=== PATIENT | male | born 1950 | race African-American/Black ===

== ENCOUNTER 2019-07-19 21:20 | Emergency (ER) | payer OTHER ==
[~2019-07-19] VITALS: Ht 172.7 cm; Wt 127.0 kg
[2019-07-19 22:05] LABS: Basophils # (auto) 0.1 uL; Basophils % (auto) 1.3 % (0.0-2.0); Eosinophils # (auto) 0.2 uL; Eosinophils % (auto) 2.2 % (0.0-7.0); Hemoglobin 12.6 g/dL (13.5-17.5); Lymphocytes # (auto) 1.2 uL; Lymphocytes % (auto) 17.5 % (10.0-50.0); Mean Corpuscular Hemoglobin 27.4 pg (28.0-32.0); Mean Corpuscular Hgb Conc. 32.3 g/dL (32.0-36.0); Mean Corpuscular Volume 84.9 fL (80.0-100.0); Monocytes # (auto) 0.4 uL; Monocytes % (auto) 6.4 % (0.0-12.0); Neutrophils # (auto) 4.9 uL; Neutrophils % (auto) 72.6 % (37.0-80.0); Platelet Count (auto) 333 10^3/uL (140-450); Red Cell Distribution Width 15.6 % (11.8-14.3); White Blood Cell 6.8 10^3/uL (4.4-10.8)
[2019-07-19 22:23] LABS: Alanine Aminotransferase 15 U/L (16-61); Albumin 3.7 g/dL (3.4-5.0); Anion Gap 7 (5-15); Aspartate Aminotransferase 9 U/L (15-37); BUN/Creatinine Ratio 13.5; Blood Urea Nitrogen 19 mg/dL (7-18); Carbon Dioxide 28 mmol/L (21-32); Chloride 106 mmol/L (98-107); GFR African American 64 mL/min; GFR Non-African American 53 mL/min; Glucose 180 mg/dL (74-106); Potassium 4.3 mmol/L (3.5-5.1); Sodium 141 mmol/L (136-145)
[2019-07-19 22:28] LABS: Alkaline Phosphatase 97 U/L (45-117); Bilirubin, Total 0.3 mg/dL (0.2-1.0); Total Protein 8.5 g/dL (6.4-8.2)
[2019-07-20 01:07] VITALS: BP 110/65
== END 2019-07-20 01:50 | disposition home or self-care (01) ==
LOC: ER 21:24
DX: R60.9 Edema, unspecified (principal); E11.9 Type 2 diabetes mellitus without complications; E78.5 Hyperlipidemia, unspecified; I10 Essential (primary) hypertension
CPT/HCPCS: 36415; 71045; 80053; 83880; 84484; 85025; 93005

== ENCOUNTER 2019-10-30 20:49 | Emergency (ER) | payer OTHER, MEDICAID ==
[~2019-10-30] VITALS: Ht 172.7 cm; Wt 122.0 kg
[2019-10-30 22:30] VITALS: BP 148/79
== END 2019-10-30 22:52 | disposition home or self-care (01) ==
LOC: ER 20:50
DX: I67.9 Cerebrovascular disease, unspecified (principal); L03.811 Cellulitis of head [any part, except face]; E11.9 Type 2 diabetes mellitus without complications; E78.5 Hyperlipidemia, unspecified; I10 Essential (primary) hypertension
CPT/HCPCS: 70450; 82962

== ENCOUNTER 2020-08-30 17:51 | Emergency (ER) | payer OTHER, MEDICAID ==
[~2020-08-30] VITALS: Ht 172.7 cm; Wt 127.0 kg
[2020-08-30 17:58] VITALS: BP 135/72
[2020-08-30] MEDS ORDERED: ACETAMINOPHEN 500 MG TAB PO ONE (19:15)
== END 2020-08-30 19:49 | disposition home or self-care (01) ==
LOC: ER 17:51 → EDBD 17:51 → ER 19:49
DX: S46.911A Strain of unspecified muscle, fascia and tendon at shoulder and upper arm level, right arm, initial encounter (principal); E66.8 Other obesity; Z68.41 Body mass index [BMI] 40.0-44.9, adult; W18.39XA Other fall on same level, initial encounter; Y93.89 Activity, other specified; Y92.89 Other specified places as the place of occurrence of the external cause; Y99.8 Other external cause status
CPT/HCPCS: 73030

== ENCOUNTER 2021-10-03 13:23 | Emergency (ER) | payer OTHER, MEDICAID ==
[~2021-10-03] VITALS: Ht 172.7 cm; Wt 124.7 kg
[2021-10-03 14:20] LABS: Basophils # (auto) 0.1 10 ^3/uL (0-0.2); Basophils % (auto) 1.2 % (0.0-2.0); Eosinophils # (auto) 0.1 10 ^3/uL (0-0.8); Hemoglobin 12.1 g/dL (13.5-17.5); Lymphocytes # (auto) 0.5 10 ^3/uL (0.4-5.4); Lymphocytes % (auto) 12.1 % (10.0-50.0); Mean Corpuscular Hemoglobin 28.5 pg (28.0-32.0); Mean Corpuscular Hgb Conc. 32.6 g/dL (32.0-36.0); Mean Corpuscular Volume 87.4 fL (80.0-100.0); Monocytes # (auto) 0.3 10 ^3/uL (0-1.3); Monocytes % (auto) 7.1 % (0.0-12.0); Neutrophils # (auto) 3.4 10 ^3/uL (1.6-8.6); Neutrophils % (auto) 77.6 % (37.0-80.0); Nucleated Red Blood Cells % 0.2 %; Red Blood Cells 4.24 10^6/uL (4.5-5.90); Red Cell Distribution Width 17.8 % (11.8-14.3); White Blood Cell 4.4 10^3/uL (4.4-10.8)
[2021-10-03 14:37] LABS: Albumin 3.3 g/dL (3.4-5.0); Calcium 8.9 mg/dL (8.5-10.1); Potassium 4.6 mmol/L (3.5-5.1)
[2021-10-03 14:39] LABS: BUN/Creatinine Ratio 9.3
[2021-10-03 14:44] LABS: Bilirubin, Total 0.7 mg/dL (0.2-1.0); Total Protein 6.8 g/dL (6.4-8.2)
[2021-10-03] MEDS ORDERED: AZIT250T9 PO (17:19)
[2021-10-03] MEDS ORDERED: PRED20TA2 PO (17:19)
[2021-10-03] MEDS ORDERED: ALBUAER3 IN (17:20)
[2021-10-03 17:22] VITALS: BP 111/49
== END 2021-10-03 17:35 | disposition home or self-care (01) ==
LOC: EDBD 13:23 → ER 13:23
DX: J20.9 Acute bronchitis, unspecified (principal); I13.0 Hypertensive heart and chronic kidney disease with heart failure and stage 1 through stage 4 chronic kidney disease, or unspecified chronic kidney disease; E11.22 Type 2 diabetes mellitus with diabetic chronic kidney disease; N18.9 Chronic kidney disease, unspecified; I50.9 Heart failure, unspecified; E78.5 Hyperlipidemia, unspecified; Z20.822 Contact with and (suspected) exposure to COVID-19
CPT/HCPCS: 36415; 71045; 80053; 83880; 84484; 85025; 87426; 93005

== ENCOUNTER 2022-01-06 10:35 | Emergency (ER) | payer OTHER, MEDICAID ==
[~2022-01-06] VITALS: Ht 172.7 cm; Wt 124.7 kg
[~2022-01-06 10:35] MED LIST: ALBUAER3 IN; AZIT250T9 PO; PRED20TA2 PO
[2022-01-06 13:46] LABS: Basophils # (auto) 0.1 10 ^3/uL (0-0.2); Basophils % (auto) 1.2 % (0.0-2.0); Eosinophils # (auto) 0.1 10 ^3/uL (0-0.8); Eosinophils % (auto) 1.8 % (0.0-7.0); Hematocrit 38.4 % (41.0-53.0); Hemoglobin 12.3 g/dL (13.5-17.5); Lymphocytes # (auto) 0.7 10 ^3/uL (0.4-5.4); Mean Corpuscular Hemoglobin 27.9 pg (28.0-32.0); Mean Corpuscular Hgb Conc. 32.1 g/dL (32.0-36.0); Mean Corpuscular Volume 86.9 fL (80.0-100.0); Monocytes # (auto) 0.4 10 ^3/uL (0-1.3); Monocytes % (auto) 4.9 % (0.0-12.0); Neutrophils # (auto) 6.3 10 ^3/uL (1.6-8.6); Neutrophils % (auto) 83.1 % (37.0-80.0); Red Blood Cells 4.42 10^6/uL (4.5-5.90); Red Cell Distribution Width 16.5 % (11.8-14.3); White Blood Cell 7.5 10^3/uL (4.4-10.8)
[2022-01-06 13:51] LABS: Albumin 3.7 g/dL (3.4-5.0); BUN/Creatinine Ratio 15.1; Calcium 8.5 mg/dL (8.5-10.1); Potassium 3.9 mmol/L (3.5-5.1)
[2022-01-06 13:53] LABS: Bilirubin, Total 0.6 mg/dL (0.2-1.0); Total Protein 7.6 g/dL (6.4-8.2)
[2022-01-06 13:55] LABS: Lactic Acid w/Reflex 2.2 mmol/L (0.4-2.0)
[2022-01-06] MEDS ORDERED: TRAM-297 PO (14:13)
[2022-01-06] MEDS ORDERED: CLIN150C PO (14:14)
[2022-01-06 15:46] VITALS: BP 128/74
== END 2022-01-06 15:48 | disposition home or self-care (01) ==
LOC: ER 10:35
DX: L03.313 Cellulitis of chest wall (principal); E11.22 Type 2 diabetes mellitus with diabetic chronic kidney disease; I13.0 Hypertensive heart and chronic kidney disease with heart failure and stage 1 through stage 4 chronic kidney disease, or unspecified chronic kidney disease; N18.9 Chronic kidney disease, unspecified; I50.9 Heart failure, unspecified; E78.5 Hyperlipidemia, unspecified
CPT/HCPCS: 36415; 80053; 83605; 85025

== ENCOUNTER 2022-07-27 19:45 | Inpatient (IN) | payer OTHER ==
[~2022-07-27] VITALS: Ht 172.7 cm; Wt 125.5 kg
[~2022-07-27 19:45] MED LIST changes: +CLIN150C PO; +TRAM-297 PO
[2022-07-27] MEDS ORDERED: ASPirin 81 mg TAB PO ONE (20:00)
[2022-07-27] MEDS ORDERED: MORPHINE SULFATE 4 MG/ML SYR/VIAL IV ONE (20:00)
[2022-07-27] MEDS ORDERED: FUROSEMIDE 40 MG/4 ML VIAL IV ONE (20:00)
[2022-07-27] MEDS ORDERED: ONDANSETRON HCL 4 MG/2 ML VIAL IV ONE (20:00)
[2022-07-27 20:41] LABS: Basophils # (auto) 0 10 ^3/uL (0-0.2); Basophils % (auto) 0.7 % (0.0-2.0); Eosinophils # (auto) 0.1 10 ^3/uL (0-0.8); Hematocrit 36.3 % (41.0-53.0); Hemoglobin 11.6 g/dL (13.5-17.5); Lymphocytes # (auto) 0.7 10 ^3/uL (0.4-5.4); Lymphocytes % (auto) 9.7 % (10.0-50.0); Mean Corpuscular Hemoglobin 27.1 pg (28.0-32.0); Mean Corpuscular Hgb Conc. 32.1 g/dL (32.0-36.0); Mean Corpuscular Volume 84.4 fL (80.0-100.0); Monocytes # (auto) 0.4 10 ^3/uL (0-1.3); Monocytes % (auto) 6.2 % (0.0-12.0); Neutrophils # (auto) 5.5 10 ^3/uL (1.6-8.6); Neutrophils % (auto) 81.4 % (37.0-80.0); Nucleated Red Blood Cells % 0.1 %; Red Cell Distribution Width 17.2 % (11.8-14.3); White Blood Cell 6.7 10^3/uL (4.4-10.8)
[2022-07-27 20:58] LABS: INR 1.08 (0.9-1.15); Partial Thromboplastin Time 26.3 sec (24.6-33.4)
[2022-07-27 21:16] LABS: Albumin 3.6 g/dL (3.4-5.0); BUN/Creatinine Ratio 12.2; Magnesium 2.3 mg/dL (1.6-2.6); Potassium 4.7 mmol/L (3.5-5.1)
[2022-07-27 21:19] LABS: Bilirubin, Total 0.6 mg/dL (0.2-1.0); Total Protein 6.9 g/dL (6.4-8.2)
[2022-07-27 22:43] LABS: Urine Bacteria NONE SEEN /hpf (None Seen); Urine Blood Negative /uL (Negative); Urine Specific Gravity 1.004 (1.001-1.035); Urine WBC <1 /hpf (0 - 3)
[2022-07-28] MEDS ORDERED: LORazepam 0.5 MG TAB PO PRN (01:30)
[2022-07-28] MEDS ORDERED: DEXTROSE (50%) 50ML SYRG IV PRN (01:30)
[2022-07-28] MEDS ORDERED: NITROGLYCERIN 0.4 MG SL TAB SL PRN (01:30)
[2022-07-28] MEDS ORDERED: MAALOX PLUS or MAALOX 30 ML PO ONE (01:30)
[2022-07-28] MEDS ORDERED: ONDANSETRON HCL 4 MG/2 ML VIAL IV PRN (01:30)
[2022-07-28] MEDS ORDERED: MORPHINE SULFATE 4 MG/ML SYR/VIAL IV PRN (01:30)
[2022-07-28] MEDS: InsuLIN REG 1unit/0.01ml Soln (100units/ml) SC SCH ×5 (03:53→20:44)
[2022-07-28] MEDS: ACCU-CHEK COMFORT CURVE STRIP VI SCH ×5 (03:53→20:37)
[2022-07-28 06:08] LABS: Basophils # (auto) 0 10 ^3/uL (0-0.2); Eosinophils # (auto) 0.1 10 ^3/uL (0-0.8); Monocytes # (auto) 0.5 10 ^3/uL (0-1.3); Nucleated Red Blood Cells % 0.1 %; Red Blood Cells 4.21 10^6/uL (4.5-5.90)
[2022-07-28 06:12] LABS: Basophils % (auto) 0.8 % (0.0-2.0); Eosinophils % (auto) 2.3 % (0.0-7.0); Hematocrit 35.4 % (41.0-53.0); Hemoglobin 11.4 g/dL (13.5-17.5); Lymphocytes % (auto) 15.1 % (10.0-50.0); Mean Corpuscular Hemoglobin 27.1 pg (28.0-32.0); Mean Corpuscular Hgb Conc. 32.3 g/dL (32.0-36.0); Mean Corpuscular Volume 83.9 fL (80.0-100.0); Monocytes % (auto) 7.1 % (0.0-12.0); Neutrophils # (auto) 4.8 10 ^3/uL (1.6-8.6); Neutrophils % (auto) 74.7 % (37.0-80.0); Red Cell Distribution Width 17.2 % (11.8-14.3); White Blood Cell 6.5 10^3/uL (4.4-10.8)
[2022-07-28 06:26] LABS: BUN/Creatinine Ratio 14.4; Potassium 4.2 mmol/L (3.5-5.1)
[2022-07-28] MEDS: ACETAMINOPHEN 325 MG TAB PO PRN (08:19)
[2022-07-28] MEDS ORDERED: ALBUTEROL SULF 2.5 MG/0.5ML(0.5%) NEB SOLN NEB PRN (09:15)
[2022-07-28] MEDS ORDERED: LACTULOSE 20Gm/30ML SOLN PO PRN (09:15)
[2022-07-28] MEDS ORDERED: ENOXAPARIN SOD 120 MG/0.8 ML SYRINGE SC SCH (10:00)
[2022-07-28] MEDS: DOCUSATE SOD 100 MG CAP PO SCH (10:29)
[2022-07-28] MEDS: LISINOPRIL 10 MG TAB PO SCH (10:29)
[2022-07-28] MEDS: METOPROLOL TARTRATE 25 MG TAB PO SCH ×2 (10:29→22:51)
[2022-07-28] MEDS: CLOPIDOGREL BISULFATE 75 MG TAB PO SCH (10:29)
[2022-07-28] MEDS: ASPirin 81 mg TAB PO SCH (10:29)
[2022-07-28] MEDS: ENOXAPARIN SOD 40 MG/0.4 ML SYRINGE SC SCH (10:30)
[2022-07-28] MEDS: FUROSEMIDE 20 MG/2 ML VIAL IV SCH (10:30)
[2022-07-28] MEDS: AZITHROMYCIN 500MG/ 250ML 250 ML IV SCH (10:45)
[2022-07-28 11:45] VITALS: BP 115/71
[2022-07-28] MEDS: ATORVASTATIN 20 MG TAB PO SCH (22:51)
[2022-07-29] MEDS: ACCU-CHEK COMFORT CURVE STRIP VI SCH ×7 (00:12→23:47)
[2022-07-29] MEDS: FUROSEMIDE 20 MG/2 ML VIAL IV SCH ×3 (00:13→22:25)
[2022-07-29] MEDS: ZOLPIDEM TARTRATE 5 MG TAB PO PRN ×2 (00:39→22:32)
[2022-07-29] MEDS: InsuLIN REG 1unit/0.01ml Soln (100units/ml) SC SCH ×6 (04:00→23:25)
[2022-07-29 07:09] LABS: Cholesterol 129 mg/dL (< 200)
[2022-07-29 07:12] LABS: HDL Cholesterol 54 mg/dL (40-59); LDL Cholesterol 75 mg/dL (< 100); Triglycerides 74 mg/dL (< 150)
[2022-07-29] MEDS: cefTRIAXone 1GM/50ML D5W 50 ML IV SCH (09:32)
[2022-07-29] MEDS: ASPirin 81 mg TAB PO SCH (10:41)
[2022-07-29] MEDS: DOCUSATE SOD 100 MG CAP PO SCH (10:41)
[2022-07-29] MEDS: METOPROLOL TARTRATE 25 MG TAB PO SCH ×2 (10:44→22:25)
[2022-07-29] MEDS: ENOXAPARIN SOD 40 MG/0.4 ML SYRINGE SC SCH (10:45)
[2022-07-29] MEDS: CLOPIDOGREL BISULFATE 75 MG TAB PO SCH (10:45)
[2022-07-29] MEDS: LISINOPRIL 10 MG TAB PO SCH (10:45)
[2022-07-29] MEDS: AZITHROMYCIN 500MG/ 250ML 250 ML IV SCH (11:01)
[2022-07-29 15:24] VITALS: BP 122/54
[2022-07-29] MEDS ORDERED: METO-159 PO (15:29)
[2022-07-29] MEDS ORDERED: FUR20T PO (15:29)
[2022-07-29] MEDS ORDERED: DULA0.5I SC (15:29)
[2022-07-29] MEDS ORDERED: INSU1INJ5 SC (15:29)
[2022-07-29] MEDS ORDERED: FERR1TAB8 PO (15:29)
[2022-07-29] MEDS ORDERED: METF-372 PO (15:29)
[2022-07-29 17:30] VITALS: BP 125/55
[2022-07-29 20:00] VITALS: BP 120/60
[2022-07-29 21:05] VITALS: BP 120/60
[2022-07-29 22:13] VITALS: BP 120/60
[2022-07-29] MEDS: ATORVASTATIN 20 MG TAB PO SCH (22:25)
[2022-07-30] MEDS: InsuLIN REG 1unit/0.01ml Soln (100units/ml) SC SCH ×5 (04:00→20:20)
[2022-07-30] MEDS: ACCU-CHEK COMFORT CURVE STRIP VI SCH ×5 (04:30→20:20)
[2022-07-30 05:00] VITALS: BP 97/45
[2022-07-30] MEDS ORDERED: REGADENOSON 0.4 MG/5 ML SYRG IV ONE (07:45)
[2022-07-30 09:00] VITALS: BP 136/64
[2022-07-30] MEDS: AZITHROMYCIN 500MG/ 250ML 250 ML IV SCH (12:00)
[2022-07-30] MEDS: cefTRIAXone 1GM/50ML D5W 50 ML IV SCH (12:01)
[2022-07-30] MEDS: ASPirin 81 mg TAB PO SCH (12:02)
[2022-07-30] MEDS: FUROSEMIDE 20 MG/2 ML VIAL IV SCH (12:02)
[2022-07-30] MEDS: ENOXAPARIN SOD 40 MG/0.4 ML SYRINGE SC SCH (12:02)
[2022-07-30] MEDS: LISINOPRIL 10 MG TAB PO SCH (12:03)
[2022-07-30] MEDS: CLOPIDOGREL BISULFATE 75 MG TAB PO SCH (12:03)
[2022-07-30] MEDS: DOCUSATE SOD 100 MG CAP PO SCH (12:03)
[2022-07-30] MEDS: METOPROLOL TARTRATE 25 MG TAB PO SCH ×2 (12:03→22:32)
[2022-07-30] MEDS: ACETAMINOPHEN 325 MG TAB PO PRN (13:00)
[2022-07-30 17:00] VITALS: BP 98/72
[2022-07-30 20:00] VITALS: BP 124/55
[2022-07-30 21:59] VITALS: BP 124/55
[2022-07-30] MEDS: ATORVASTATIN 20 MG TAB PO SCH (22:32)
[2022-07-31] MEDS: ACCU-CHEK COMFORT CURVE STRIP VI SCH ×4 (00:40→12:00)
[2022-07-31] MEDS: InsuLIN REG 1unit/0.01ml Soln (100units/ml) SC SCH ×4 (04:59→12:00)
[2022-07-31 05:00] VITALS: BP 133/54
[2022-07-31] MEDS ORDERED: FUROSEMIDE 20 MG TAB PO SCH (06:00)
[2022-07-31 07:40] VITALS: BP 110/62
[2022-07-31] MEDS: DOCUSATE SOD 100 MG CAP PO SCH (08:15)
[2022-07-31] MEDS: CLOPIDOGREL BISULFATE 75 MG TAB PO SCH (08:15)
[2022-07-31] MEDS: ASPirin 81 mg TAB PO SCH (08:15)
[2022-07-31] MEDS: METOPROLOL TARTRATE 25 MG TAB PO SCH (08:16)
[2022-07-31] MEDS: ENOXAPARIN SOD 40 MG/0.4 ML SYRINGE SC SCH (08:16)
[2022-07-31] MEDS: LISINOPRIL 10 MG TAB PO SCH (08:21)
[2022-07-31 09:00] VITALS: BP 134/74
[2022-07-31] MEDS: cefTRIAXone 1GM/50ML D5W 50 ML IV SCH (09:00)
[2022-07-31] MEDS: AZITHROMYCIN 500MG/ 250ML 250 ML IV SCH (10:00)
[2022-07-31] MEDS ORDERED: DOXY-332 PO (10:09)
[2022-07-31 12:19] VITALS: BP 133/74
[2022-07-31 13:00] VITALS: BP 106/63
== END 2022-07-31 13:00 | disposition home or self-care (01) | DRG 193 ==
LOC: EDBD 19:45 → EDUNIT# 19:45 → ER 19:49 → TELE 07-28 01:30 → TELE-E-ADS 07-29 13:33 → TELE-EAST 07-29 20:45
PROVIDERS: ADMIT Hospitalist; ATTEND Nurse Practitioner Acute Care
DX: J15.9 Unspecified bacterial pneumonia (principal); I50.23 Acute on chronic systolic (congestive) heart failure; J96.21 Acute and chronic respiratory failure with hypoxia; N17.9 Acute kidney failure, unspecified; I13.0 Hypertensive heart and chronic kidney disease with heart failure and stage 1 through stage 4 chronic kidney disease, or unspecified chronic kidney disease; Z68.41 Body mass index [BMI] 40.0-44.9, adult; D64.9 Anemia, unspecified; E11.22 Type 2 diabetes mellitus with diabetic chronic kidney disease; N18.2 Chronic kidney disease, stage 2 (mild); E11.42 Type 2 diabetes mellitus with diabetic polyneuropathy; I48.91 Unspecified atrial fibrillation; E66.01 Morbid (severe) obesity due to excess calories; E78.5 Hyperlipidemia, unspecified; Z79.4 Long term (current) use of insulin; Z82.49 Family history of ischemic heart disease and other diseases of the circulatory system
CPT/HCPCS: 36415; 71045; 71046; 73610; 78452; 80048; 80053; 80061; 81001; 82962; 83735; 83880; 84484; 85025; 85610; 85730; 87040; 87426; 87804; 93005; 93017; 93306; 96374; 96375; G0378; J0696; J1815; J2405

== ENCOUNTER 2023-03-12 13:55 | Emergency (ER) | payer OTHER, MEDICAID ==
[~2023-03-12] VITALS: Ht 172.7 cm; Wt 122.7 kg
[~2023-03-12 13:55] MED LIST changes: +AZIT-43 PO; -AZIT250T9 PO; +DOXY-448 PO; +DULA0.5I SC; +FERR1TAB8 PO; +FUR20T PO; +INSU1INJ5 SC; +METF-372 PO; +METO-159 PO
[2023-03-12 14:39] LABS: Basophils # (auto) 0 10 ^3/uL (0-0.2); Basophils % (auto) 0.5 % (0.0-2.0); Eosinophils # (auto) 0.1 10 ^3/uL (0-0.8); Eosinophils % (auto) 1.4 % (0.0-7.0); Hematocrit 43.3 % (41.0-53.0); Lymphocytes # (auto) 0.7 10 ^3/uL (0.4-5.4); Lymphocytes % (auto) 7.7 % (10.0-50.0); Mean Corpuscular Hemoglobin 28.7 pg (28.0-32.0); Mean Corpuscular Hgb Conc. 32.4 g/dL (32.0-36.0); Mean Corpuscular Volume 88.8 fL (80.0-100.0); Monocytes # (auto) 0.4 10 ^3/uL (0-1.3); Monocytes % (auto) 4.8 % (0.0-12.0); Neutrophils # (auto) 7.5 10 ^3/uL (1.6-8.6); Neutrophils % (auto) 85.6 % (37.0-80.0); Red Blood Cells 4.88 10^6/uL (4.5-5.90); Red Cell Distribution Width 15.9 % (11.8-14.3); White Blood Cell 8.8 10^3/uL (4.4-10.8)
[2023-03-12 15:02] LABS: Albumin 3.4 g/dL (3.4-5.0); Calcium 8.7 mg/dL (8.5-10.1); Potassium 4.8 mmol/L (3.5-5.1)
[2023-03-12 15:09] LABS: BUN/Creatinine Ratio 10.7 (10.0-20.0); Bilirubin, Total 0.5 mg/dL (0.2-1.0)
[2023-03-12 15:59] LABS: Urine Bacteria NONE SEEN /hpf (None Seen); Urine Blood Negative /uL (Negative); Urine Clarity Clear (Clear); Urine Color Colorless (Yellow); Urine Hyaline Cast FEW /lpf (0 - 2); Urine Protein, UAD TRACE (Negative); Urine Specific Gravity 1.006 (1.001-1.035); Urine Urobilinogen Normal (Negative); Urine WBC 3 /hpf (0 - 3)
[2023-03-12 20:13] VITALS: BP 127/59; PULSE 63; RESP 16; TEMP 97.7; O2SAT 98
== END 2023-03-12 20:15 | disposition home or self-care (01) ==
LOC: ER 13:55 → EDBD 13:55 → ER 20:15
DX: R07.89 Other chest pain (principal); I48.91 Unspecified atrial fibrillation; I13.0 Hypertensive heart and chronic kidney disease with heart failure and stage 1 through stage 4 chronic kidney disease, or unspecified chronic kidney disease; E11.22 Type 2 diabetes mellitus with diabetic chronic kidney disease; N18.9 Chronic kidney disease, unspecified; I50.9 Heart failure, unspecified; E78.5 Hyperlipidemia, unspecified; F17.210 Nicotine dependence, cigarettes, uncomplicated; Z79.2 Long term (current) use of antibiotics; Z79.4 Long term (current) use of insulin; Z79.899 Other long term (current) drug therapy
CPT/HCPCS: 36415; 71045; 74176; 80053; 81001; 83690; 83880; 84484; 85025; 93005

== ENCOUNTER 2023-03-22 05:08 | Inpatient (IN) | payer OTHER, MEDICAID ==
[~2023-03-22] VITALS: Ht 172.7 cm; Wt 138.4 kg
[2023-03-22] MEDS ORDERED: HYDROcodone-ACET 5/325MG TAB PO ONE (05:30)
[2023-03-22] MEDS ORDERED: FUROSEMIDE 40 MG/4 ML VIAL IV ONE (07:00)
[2023-03-22 07:45] VITALS: PULSE 60; RESP 18; O2SAT 96
[2023-03-22 08:33] LABS: Basophils # (auto) 0.1 10 ^3/uL (0-0.2); Basophils % (auto) 0.5 % (0.0-2.0); Eosinophils # (auto) 0.1 10 ^3/uL (0-0.8); Eosinophils % (auto) 1.4 % (0.0-7.0); Hematocrit 44.8 % (41.0-53.0); Hemoglobin 14.8 g/dL (13.5-17.5); Lymphocytes # (auto) 0.7 10 ^3/uL (0.4-5.4); Lymphocytes % (auto) 6.7 % (10.0-50.0); Mean Corpuscular Hemoglobin 29.3 pg (28.0-32.0); Mean Corpuscular Hgb Conc. 32.9 g/dL (32.0-36.0); Monocytes # (auto) 0.5 10 ^3/uL (0-1.3); Monocytes % (auto) 5.4 % (0.0-12.0); Neutrophils # (auto) 8.6 10 ^3/uL (1.6-8.6); Red Blood Cells 5.04 10^6/uL (4.5-5.90)
[2023-03-22 08:48] LABS: Alanine Aminotransferase 14 U/L (7-40); Albumin 4.2 g/dL (3.2-4.8); Alkaline Phosphatase 111 U/L (46-116); Anion Gap 3.6 (5-15); Aspartate Aminotransferase < 8 U/L (13-40); BUN/Creatinine Ratio 11.9 (10.0-20.0); Bilirubin, Total 0.4 mg/dL (0.2-1.0); Blood Urea Nitrogen 18 mg/dL (9-23); Calcium 9.4 mg/dL (8.5-10.1); Carbon Dioxide 31.4 mmol/L (20-30); Chloride 104 mmol/L (98-107); Glucose 262 mg/dL (74-106); Potassium 3.9 mmol/L (3.5-5.1); Sodium 139 mmol/L (136-145)
[2023-03-22 08:49] LABS: Total Protein 7.5 g/dL (5.7-8.2)
[2023-03-22 09:36] LABS: Urine Bacteria NONE SEEN /hpf (None Seen); Urine Blood Negative /uL (Negative); Urine Clarity Clear (Clear); Urine Color Colorless (Yellow); Urine Protein, UAD Negative (Negative); Urine Specific Gravity 1.005 (1.001-1.035); Urine Urobilinogen Normal (Negative); Urine WBC <1 /hpf (0 - 3)
[2023-03-22] MEDS ORDERED: NITROGLYCERIN 0.4 MG SL TAB SL PRN (09:45)
[2023-03-22] MEDS ORDERED: ALBUTEROL SULF 2.5 MG/0.5ML(0.5%) NEB SOLN NEB PRN (09:45)
[2023-03-22] MEDS ORDERED: MORPHINE SULFATE INJ 2 MG/ml SYRG IV PRN (09:45)
[2023-03-22] MEDS ORDERED: ACETAMINOPHEN 325 MG TAB PO PRN (09:45)
[2023-03-22 10:01] LABS: LDL Cholesterol 82 mg/dL (< 100); Triglycerides 95 mg/dL (< 150)
[2023-03-22 10:03] LABS: Cholesterol 136 mg/dL (< 200); HDL Cholesterol 46 mg/dL (40-59)
[2023-03-22] MEDS: FUROSEMIDE 20 MG/2 ML VIAL IV SCH (10:21)
[2023-03-22] MEDS: ENOXAPARIN SOD 40 MG/0.4 ML SYRINGE SC SCH (10:21)
[2023-03-22] MEDS ORDERED: ASPirin 325 MG TAB PO ONE (10:30)
[2023-03-22] MEDS ORDERED: DEXTROSE (50%) 50ML SYRG IV PRN (11:00)
[2023-03-22 11:18] LABS: INR 1.03 (0.9-1.15); Prothrombin Time 10.8 sec (9.3-11.8)
[2023-03-22] MEDS: ACCU-CHEK COMFORT CURVE STRIP VI SCH ×3 (11:30→23:51)
[2023-03-22] MEDS: InsuLIN REG 1unit/0.01ml Soln (100units/ml) SC SCH ×2 (12:02→17:00)
[2023-03-22 12:58] VITALS: PULSE 85; RESP 12; O2SAT 95
[2023-03-22] MEDS: HYDROcodone-ACET 5/325MG TAB PO PRN ×2 (13:32→23:50)
[2023-03-22] MEDS ORDERED: methylPREDNISolone SOD SUCC 40 MG/ML VL IV ONE (14:30)
[2023-03-22 16:12] LABS: Sodium Urine 87 mmol/L (40-220)
[2023-03-22 16:17] LABS: Protein, Urine < 6.0 mg/dL (0.0-11.9)
[2023-03-22 16:20] LABS: Creatinine, Urine 61.82 mg/dL (30.0-125.0)
[2023-03-22 20:10] VITALS: PULSE 91; RESP 14; O2SAT 93
[2023-03-22 21:11] VITALS: BP 145/79; PULSE 91; RESP 18; TEMP 98.3; O2SAT 97
[2023-03-22 22:51] VITALS: BP 152/83; PULSE 91; PULSE 93; RESP 19; TEMP 98.2; O2SAT 91
[2023-03-22 23:33] VITALS: PULSE 88
[2023-03-22] MEDS: METOPROLOL TARTRATE 50 MG TAB PO SCH (23:51)
[2023-03-23] VITALS (11 sets, daily range): BP systolic 105–144; BP diastolic 45–60; PULSE 54–87; RESP 17–20; TEMP 36.5; O2SAT 93–98
[2023-03-23] MEDS: InsuLIN REG 1unit/0.01ml Soln (100units/ml) SC SCH ×5 (00:39→22:00)
[2023-03-23 05:46] LABS: Basophils # (auto) 0 10 ^3/uL (0-0.2); Basophils % (auto) 0.2 % (0.0-2.0); Eosinophils # (auto) 0 10 ^3/uL (0-0.8); Hemoglobin 14.4 g/dL (13.5-17.5); Lymphocytes # (auto) 0.5 10 ^3/uL (0.4-5.4); Lymphocytes % (auto) 4.5 % (10.0-50.0); Mean Corpuscular Hemoglobin 29.3 pg (28.0-32.0); Mean Corpuscular Hgb Conc. 32.7 g/dL (32.0-36.0); Mean Corpuscular Volume 89.6 fL (80.0-100.0); Monocytes # (auto) 0.4 10 ^3/uL (0-1.3); Monocytes % (auto) 3.4 % (0.0-12.0); Neutrophils # (auto) 9.9 10 ^3/uL (1.6-8.6); Neutrophils % (auto) 91.9 % (37.0-80.0); Red Blood Cells 4.91 10^6/uL (4.5-5.90); Red Cell Distribution Width 15.6 % (11.8-14.3); White Blood Cell 10.8 10^3/uL (4.4-10.8)
[2023-03-23 05:58] LABS: Albumin 4.1 g/dL (3.2-4.8); Alkaline Phosphatase 94 U/L (46-116); Anion Gap 3.4 (5-15); Aspartate Aminotransferase < 8 U/L (13-40); BUN/Creatinine Ratio 11.5 (10.0-20.0); Blood Urea Nitrogen 17 mg/dL (9-23); Calcium 9.3 mg/dL (8.5-10.1); Carbon Dioxide 29.6 mmol/L (20-30); Chloride 105 mmol/L (98-107); Glucose 216 mg/dL (74-106); Potassium 4.5 mmol/L (3.5-5.1); Sodium 138 mmol/L (136-145)
[2023-03-23 05:59] LABS: Bilirubin, Total 0.7 mg/dL (0.2-1.0); Phosphorus 2.8 mg/dL (2.4-5.1); Total Protein 7.3 g/dL (5.7-8.2)
[2023-03-23 06:08] LABS: Alanine Aminotransferase < 9 U/L (7-40)
[2023-03-23] MEDS: ACCU-CHEK COMFORT CURVE STRIP VI SCH ×4 (06:10→22:00)
[2023-03-23] MEDS: HYDROcodone-ACET 5/325MG TAB PO PRN (06:49)
[2023-03-23] MEDS: FUROSEMIDE 20 MG/2 ML VIAL IV SCH (11:17)
[2023-03-23] MEDS: METOPROLOL TARTRATE 50 MG TAB PO SCH ×2 (11:18→22:00)
[2023-03-23] MEDS: FERROUS SULFATE 325mg EC TAB PO SCH (11:19)
[2023-03-23] MEDS: ASPirin 81 mg TAB PO SCH (11:19)
[2023-03-23] MEDS: ENOXAPARIN SOD 40 MG/0.4 ML SYRINGE SC SCH (11:21)
[2023-03-24] VITALS (10 sets, daily range): BP systolic 119–137; BP diastolic 53–80; PULSE 54–61; RESP 18; TEMP 97.6–98.4; O2SAT 96–98
[2023-03-24] MEDS: HYDROcodone-ACET 5/325MG TAB PO PRN ×3 (02:05→22:03)
[2023-03-24 06:17] LABS: Basophils # (auto) 0.1 10 ^3/uL (0-0.2); Basophils % (auto) 0.6 % (0.0-2.0); Eosinophils # (auto) 0.2 10 ^3/uL (0-0.8); Eosinophils % (auto) 2.3 % (0.0-7.0); Hematocrit 40.8 % (41.0-53.0); Hemoglobin 13.3 g/dL (13.5-17.5); Lymphocytes # (auto) 1.3 10 ^3/uL (0.4-5.4); Lymphocytes % (auto) 15.1 % (10.0-50.0); Mean Corpuscular Hemoglobin 28.9 pg (28.0-32.0); Mean Corpuscular Hgb Conc. 32.7 g/dL (32.0-36.0); Mean Corpuscular Volume 88.5 fL (80.0-100.0); Monocytes # (auto) 0.6 10 ^3/uL (0-1.3); Monocytes % (auto) 7.2 % (0.0-12.0); Neutrophils # (auto) 6.5 10 ^3/uL (1.6-8.6); Neutrophils % (auto) 74.8 % (37.0-80.0); Red Blood Cells 4.61 10^6/uL (4.5-5.90); Red Cell Distribution Width 15.7 % (11.8-14.3); White Blood Cell 8.7 10^3/uL (4.4-10.8)
[2023-03-24 06:21] LABS: Chloride 103 mmol/L (98-107); Potassium 3.9 mmol/L (3.5-5.1); Sodium 137 mmol/L (136-145)
[2023-03-24 06:22] LABS: Anion Gap 3.3 (5-15); Carbon Dioxide 30.7 mmol/L (20-30)
[2023-03-24 06:23] LABS: Calcium 8.8 mg/dL (8.7-10.4)
[2023-03-24 06:27] LABS: Glucose 122 mg/dL (74-106)
[2023-03-24] MEDS: InsuLIN REG 1unit/0.01ml Soln (100units/ml) SC SCH ×4 (06:50→22:00)
[2023-03-24] MEDS: ACCU-CHEK COMFORT CURVE STRIP VI SCH ×4 (06:50→21:58)
[2023-03-24 07:53] LABS: BUN/Creatinine Ratio 14.2 (10.0-20.0); Blood Urea Nitrogen 18 mg/dL (9-23)
[2023-03-24] MEDS: FUROSEMIDE 20 MG/2 ML VIAL IV SCH (10:08)
[2023-03-24] MEDS: methylPREDNISolone SOD SUCC 40 MG/ML VL IV SCH (10:08)
[2023-03-24] MEDS: ASPirin 81 mg TAB PO SCH (10:09)
[2023-03-24] MEDS: FERROUS SULFATE 325mg EC TAB PO SCH (10:09)
[2023-03-24] MEDS: METOPROLOL TARTRATE 50 MG TAB PO SCH ×2 (10:10→21:57)
[2023-03-24] MEDS: ENOXAPARIN SOD 40 MG/0.4 ML SYRINGE SC SCH (11:42)
[2023-03-24] MEDS: ATORVASTATIN 20 MG TAB PO SCH (21:57)
[2023-03-25] VITALS (10 sets, daily range): BP systolic 128–170; BP diastolic 56–118; PULSE 53–91; RESP 15–19; TEMP 97.7–98.3; O2SAT 94–99
[2023-03-25] MEDS: ACCU-CHEK COMFORT CURVE STRIP VI SCH ×4 (06:21→21:39)
[2023-03-25] MEDS: InsuLIN REG 1unit/0.01ml Soln (100units/ml) SC SCH ×3 (06:24→16:54)
[2023-03-25 06:58] LABS: Basophils # (auto) 0 10 ^3/uL (0-0.2); Basophils % (auto) 0.3 % (0.0-2.0); Eosinophils # (auto) 0 10 ^3/uL (0-0.8); Eosinophils % (auto) 0.2 % (0.0-7.0); Hematocrit 42.1 % (41.0-53.0); Hemoglobin 13.7 g/dL (13.5-17.5); Lymphocytes # (auto) 0.8 10 ^3/uL (0.4-5.4); Mean Corpuscular Hgb Conc. 32.5 g/dL (32.0-36.0); Mean Corpuscular Volume 89.2 fL (80.0-100.0); Monocytes # (auto) 0.7 10 ^3/uL (0-1.3); Monocytes % (auto) 6.7 % (0.0-12.0); Neutrophils # (auto) 8.7 10 ^3/uL (1.6-8.6); Neutrophils % (auto) 84.8 % (37.0-80.0); Red Blood Cells 4.72 10^6/uL (4.5-5.90); Red Cell Distribution Width 15.2 % (11.8-14.3); White Blood Cell 10.3 10^3/uL (4.4-10.8)
[2023-03-25 07:06] LABS: Anion Gap 4.3 (5-15); Carbon Dioxide 28.7 mmol/L (20-30); Chloride 102 mmol/L (98-107); Potassium 4.2 mmol/L (3.5-5.1); Sodium 135 mmol/L (136-145)
[2023-03-25 07:07] LABS: Calcium 8.9 mg/dL (8.7-10.4)
[2023-03-25 07:12] LABS: BUN/Creatinine Ratio 13.2 (10.0-20.0); Blood Urea Nitrogen 17 mg/dL (9-23); Glucose 154 mg/dL (74-106)
[2023-03-25] MEDS ORDERED: DEXTROSE (50%) 50ML SYRG IV PRN (08:45)
[2023-03-25] MEDS: FUROSEMIDE 20 MG/2 ML VIAL IV SCH (09:51)
[2023-03-25] MEDS: FERROUS SULFATE 325mg EC TAB PO SCH (09:51)
[2023-03-25] MEDS: ENOXAPARIN SOD 40 MG/0.4 ML SYRINGE SC SCH (09:51)
[2023-03-25] MEDS: methylPREDNISolone SOD SUCC 40 MG/ML VL IV SCH (09:51)
[2023-03-25] MEDS: ASPirin 81 mg TAB PO SCH (09:52)
[2023-03-25] MEDS: METOPROLOL TARTRATE 50 MG TAB PO SCH ×2 (09:53→21:49)
[2023-03-25] MEDS: HYDROcodone-ACET 5/325MG TAB PO PRN ×2 (09:59→21:49)
[2023-03-25] MEDS ORDERED: COLCHICINE 0.6 MG CAP PO ONE ×2 (14:00→15:00)
[2023-03-25] MEDS: DOCUSATE SOD 100 MG CAP PO PRN (17:17)
[2023-03-25] MEDS: ATORVASTATIN 20 MG TAB PO SCH (21:49)
[2023-03-25] MEDS ORDERED: InsuLIN REG 1unit/0.01ml Soln (100units/ml) SC SCH (22:00)
[2023-03-26 05:00] VITALS: BP 175/59; PULSE 56; RESP 16; TEMP 97.8; O2SAT 94
[2023-03-26 06:23] LABS: Basophils # (auto) 0 10 ^3/uL (0-0.2); Basophils % (auto) 0.2 % (0.0-2.0); Eosinophils # (auto) 0 10 ^3/uL (0-0.8); Eosinophils % (auto) 0.2 % (0.0-7.0); Hematocrit 41.5 % (41.0-53.0); Hemoglobin 13.6 g/dL (13.5-17.5); Lymphocytes # (auto) 1.2 10 ^3/uL (0.4-5.4); Lymphocytes % (auto) 11.2 % (10.0-50.0); Mean Corpuscular Hemoglobin 28.9 pg (28.0-32.0); Mean Corpuscular Hgb Conc. 32.8 g/dL (32.0-36.0); Mean Corpuscular Volume 88.3 fL (80.0-100.0); Monocytes # (auto) 0.8 10 ^3/uL (0-1.3); Monocytes % (auto) 7.2 % (0.0-12.0); Neutrophils # (auto) 8.5 10 ^3/uL (1.6-8.6); Neutrophils % (auto) 81.2 % (37.0-80.0); Red Cell Distribution Width 15.3 % (11.8-14.3); White Blood Cell 10.4 10^3/uL (4.4-10.8)
[2023-03-26] MEDS: ACCU-CHEK COMFORT CURVE STRIP VI SCH ×3 (06:39→17:30)
[2023-03-26] MEDS: HYDROcodone-ACET 5/325MG TAB PO PRN (06:39)
[2023-03-26 06:41] LABS: Anion Gap 2.5 (5-15); Calcium 8.9 mg/dL (8.7-10.4); Carbon Dioxide 30.5 mmol/L (20-30); Chloride 102 mmol/L (98-107); Potassium 4.6 mmol/L (3.5-5.1); Sodium 135 mmol/L (136-145)
[2023-03-26] MEDS: InsuLIN REG 1unit/0.01ml Soln (100units/ml) SC SCH ×3 (06:42→17:00)
[2023-03-26 06:47] LABS: BUN/Creatinine Ratio 10.6 (10.0-20.0); Blood Urea Nitrogen 15 mg/dL (9-23); Glucose 157 mg/dL (74-106)
[2023-03-26] MEDS ORDERED: EMPAGLIFLOZIN 10 MG TAB PO SCH (07:00)
[2023-03-26] MEDS ORDERED: INSULIN LANTUS (GLARGINE) 1 /0.01ml (100units/ml) SC SCH (07:30)
[2023-03-26 07:40] VITALS: BP 124/62; PULSE 51; O2SAT 98
[2023-03-26 08:00] VITALS: BP 129/62; PULSE 52; RESP 18; TEMP 97.6; O2SAT 99
[2023-03-26] MEDS: FERROUS SULFATE 325mg EC TAB PO SCH (09:38)
[2023-03-26] MEDS: ASPirin 81 mg TAB PO SCH (09:39)
[2023-03-26] MEDS: ENOXAPARIN SOD 40 MG/0.4 ML SYRINGE SC SCH (09:40)
[2023-03-26] MEDS: DOCUSATE SOD 100 MG CAP PO PRN (09:53)
[2023-03-26] MEDS ORDERED: amLODIPine BESYLATE 5 MG TAB PO SCH (10:00)
[2023-03-26] MEDS ORDERED: COLCHICINE 0.6 MG CAP PO SCH (10:00)
[2023-03-26] MEDS ORDERED: FUROSEMIDE 20 MG TAB PO SCH (10:00)
[2023-03-26] MEDS ORDERED: methylPREDNISolone SOD SUCC 40 MG/ML VL IV SCH (10:00)
[2023-03-26] MEDS ORDERED: METOPROLOL SUCCINATE XL 50 MG TAB PO SCH (10:00)
[2023-03-26] MEDS ORDERED: ATOR80TA PO (10:27)
[2023-03-26] MEDS ORDERED: EMPA1TAB PO (10:27)
[2023-03-26] MEDS ORDERED: LISI2.5T47 PO (10:27)
[2023-03-26] MEDS ORDERED: ALL100T PO (10:27)
[2023-03-26] MEDS ORDERED: METH4PAK PO (10:27)
[2023-03-26] MEDS ORDERED: ASPI1TAB20 PO (10:27)
[2023-03-26] MEDS ORDERED: METO1TAB9 PO (10:27)
[2023-03-26 12:00] VITALS: BP 129/60; PULSE 51; RESP 18; TEMP 97.7; O2SAT 97
[2023-03-26 14:55] VITALS: BP 124/62; PULSE 52; RESP 18
[2023-03-26 16:00] VITALS: BP 137/72; PULSE 104; RESP 18; TEMP 97.9; O2SAT 97
== END 2023-03-26 18:00 | disposition home or self-care (01) | DRG 554 ==
LOC: EDBD 05:08 → ER 05:08 → TELE 09:44 → TELE-CENTR 22:05 → CENTRAL 03-26 00:11
PROVIDERS: ADMIT Internal Medicine Geriatric Medicine; ATTEND Student in an Organized Health Care Education/Training Program
DX: M10.9 Gout, unspecified (principal); Z68.42 Body mass index [BMI] 45.0-49.9, adult; N17.9 Acute kidney failure, unspecified; J44.9 Chronic obstructive pulmonary disease, unspecified; E66.01 Morbid (severe) obesity due to excess calories; E78.5 Hyperlipidemia, unspecified; I48.91 Unspecified atrial fibrillation; E11.9 Type 2 diabetes mellitus without complications; F17.210 Nicotine dependence, cigarettes, uncomplicated; I11.0 Hypertensive heart disease with heart failure; I50.9 Heart failure, unspecified; E11.51 Type 2 diabetes mellitus with diabetic peripheral angiopathy without gangrene; Z99.81 Dependence on supplemental oxygen; Z82.49 Family history of ischemic heart disease and other diseases of the circulatory system
CPT/HCPCS: 36415; 71045; 73600; 76881; 80048; 80053; 80061; 81001; 82306; 82570; 82962; 83036; 83605; 83880; 83930; 84100; 84156; 84300; 84443; 84484; 84550; 85025; 85610; 87040; 93005; 93306; 93925; 93970; 97110; 97116; 97163; 97530; 99291; G0378; J1815

== ENCOUNTER 2023-05-20 13:17 | Inpatient (IN) | payer MEDICAID, OTHER ==
[~2023-05-20] VITALS: Ht 172.7 cm; Wt 55.0 kg
[~2023-05-20 13:17] MED LIST changes: +ALL100T PO; +ASPI1TAB20 PO; +ATOR80TA PO; -AZIT-43 PO; -CLIN150C PO; -DOXY-448 PO; +EMPA1TAB PO; +LISI2.5T47 PO; +METH4PAK PO; -METO-159 PO; +METO1TAB9 PO; -PRED20TA2 PO; -TRAM-297 PO
[2023-05-20 13:43] LABS: Basophils # (auto) 0.1 10 ^3/uL (0-0.2); Eosinophils # (auto) 0.1 10 ^3/uL (0-0.8); Eosinophils % (auto) 1.4 % (0.0-7.0); Hematocrit 42.5 % (41.0-53.0); Hemoglobin 13.8 g/dL (13.5-17.5); Lymphocytes # (auto) 0.7 10 ^3/uL (0.4-5.4); Lymphocytes % (auto) 7.5 % (10.0-50.0); Mean Corpuscular Hemoglobin 29.3 pg (28.0-32.0); Mean Corpuscular Hgb Conc. 32.5 g/dL (32.0-36.0); Mean Corpuscular Volume 90.1 fL (80.0-100.0); Monocytes # (auto) 0.4 10 ^3/uL (0-1.3); Monocytes % (auto) 4.2 % (0.0-12.0); Neutrophils # (auto) 8.2 10 ^3/uL (1.6-8.6); Neutrophils % (auto) 85.9 % (37.0-80.0); Nucleated Red Blood Cells % 0.2 %; Red Blood Cells 4.72 10^6/uL (4.5-5.90); Red Cell Distribution Width 15.7 % (11.8-14.3); White Blood Cell 9.5 10^3/uL (4.4-10.8)
[2023-05-20 14:01] LABS: Alanine Aminotransferase 13 U/L (7-40); Alkaline Phosphatase 130 U/L (46-116); Anion Gap 8 (5-15); Aspartate Aminotransferase 10 U/L (13-40); BUN/Creatinine Ratio 6.1 (10.0-20.0); Bilirubin, Total 1.2 mg/dL (0.2-1.0); Blood Urea Nitrogen 10 mg/dL (9-23); Calcium 8.8 mg/dL (8.7-10.4); Carbon Dioxide 24 mmol/L (20-30); Chloride 106 mmol/L (98-107); Glucose 315 mg/dL (74-106); Magnesium 1.7 mg/dL (1.6-2.6); Potassium 3.8 mmol/L (3.5-5.1); Sodium 138 mmol/L (136-145); Total Protein 7.2 g/dL (5.7-8.2)
[2023-05-20 14:07] LABS: INR 1.07 (0.9-1.15); Partial Thromboplastin Time 27.6 SEC (24.5-34.5); Prothrombin Time 11.2 sec (9.3-11.8)
[2023-05-20] MEDS ORDERED: DEXTROSE (50%) 50ML SYRG IV PRN (21:30)
[2023-05-20] MEDS ORDERED: ONDANSETRON HCL 4 MG/2 ML VIAL IV PRN (21:30)
[2023-05-20] MEDS ORDERED: ACETAMINOPHEN 325 MG TAB PO PRN (21:30)
[2023-05-20] MEDS ORDERED: NITROGLYCERIN 0.4 MG SL TAB SL PRN (21:30)
[2023-05-20] MEDS ORDERED: MORPHINE SULFATE INJ 2 MG/ml SYRG IV PRN (21:30)
[2023-05-20] MEDS ORDERED: ALBUTEROL SULF 2.5 MG/0.5ML(0.5%) NEB SOLN NEB PRN (21:30)
[2023-05-20 21:38] VITALS: BP 126/47; PULSE 88; RESP 22; TEMP 98; O2SAT 92
[2023-05-20] MEDS: ACCU-CHEK COMFORT CURVE STRIP VI SCH (23:16)
[2023-05-20] MEDS: ATORVASTATIN 20 MG TAB PO SCH (23:20)
[2023-05-20] MEDS: InsuLIN REG 1unit/0.01ml Soln (100units/ml) SC SCH (23:26)
[2023-05-21] VITALS (7 sets, daily range): BP systolic 105–129; BP diastolic 53–72; PULSE 63–79; RESP 18–20; TEMP 97.3–98.2; O2SAT 94–96
[2023-05-21 05:49] LABS: Basophils # (auto) 0.1 10 ^3/uL (0-0.2); Basophils % (auto) 0.8 % (0.0-2.0); Eosinophils # (auto) 0.2 10 ^3/uL (0-0.8); Eosinophils % (auto) 3.3 % (0.0-7.0); Hematocrit 39.3 % (41.0-53.0); Hemoglobin 13.1 g/dL (13.5-17.5); Lymphocytes # (auto) 0.9 10 ^3/uL (0.4-5.4); Lymphocytes % (auto) 12.2 % (10.0-50.0); Mean Corpuscular Hemoglobin 29.1 pg (28.0-32.0); Mean Corpuscular Hgb Conc. 33.2 g/dL (32.0-36.0); Mean Corpuscular Volume 87.7 fL (80.0-100.0); Monocytes # (auto) 0.5 10 ^3/uL (0-1.3); Neutrophils # (auto) 5.9 10 ^3/uL (1.6-8.6); Neutrophils % (auto) 77.7 % (37.0-80.0); Nucleated Red Blood Cells % 0.1 %; Red Blood Cells 4.48 10^6/uL (4.5-5.90); Red Cell Distribution Width 15.6 % (11.8-14.3); White Blood Cell 7.5 10^3/uL (4.4-10.8)
[2023-05-21 05:51] LABS: Alanine Aminotransferase 14 U/L (7-40); Albumin 3.7 g/dL (3.2-4.8); Alkaline Phosphatase 117 U/L (46-116); Anion Gap 6 (5-15); Aspartate Aminotransferase < 8 U/L (13-40); BUN/Creatinine Ratio 7.1 (10.0-20.0); Blood Urea Nitrogen 11 mg/dL (9-23); Calcium 8.5 mg/dL (8.7-10.4); Carbon Dioxide 28 mmol/L (20-30); Chloride 106 mmol/L (98-107); Glucose 229 mg/dL (74-106); Potassium 3.4 mmol/L (3.5-5.1); Sodium 140 mmol/L (136-145)
[2023-05-21 05:52] LABS: Bilirubin, Total 0.7 mg/dL (0.2-1.0); Total Protein 6.6 g/dL (5.7-8.2)
[2023-05-21] MEDS ORDERED: ATOR10TA52 PO (06:35)
[2023-05-21] MEDS ORDERED: METF-370 PO (06:35)
[2023-05-21] MEDS ORDERED: CHOL20002 PO (06:35)
[2023-05-21] MEDS ORDERED: DULA0.5I SC (06:35)
[2023-05-21] MEDS ORDERED: PANT40TA2 PO (06:35)
[2023-05-21] MEDS ORDERED: AMLO1TAB23 PO (06:35)
[2023-05-21] MEDS ORDERED: OLME1TAB73 PO (06:35)
[2023-05-21] MEDS ORDERED: INSU100I67 SC (06:35)
[2023-05-21] MEDS ORDERED: TORS20TA19 PO (06:35)
[2023-05-21] MEDS ORDERED: DOCU-94 PO (06:35)
[2023-05-21] MEDS ORDERED: METO-159 PO (06:35)
[2023-05-21] MEDS: ACCU-CHEK COMFORT CURVE STRIP VI SCH ×4 (06:49→21:18)
[2023-05-21] MEDS: InsuLIN REG 1unit/0.01ml Soln (100units/ml) SC SCH ×4 (06:51→21:26)
[2023-05-21] MEDS: ALLOPURINOL 100 MG TAB PO SCH (08:55)
[2023-05-21] MEDS: METOPROLOL SUCCINATE XL 50 MG TAB PO SCH (08:56)
[2023-05-21] MEDS: LISINOPRIL 5 MG TAB PO SCH (08:56)
[2023-05-21] MEDS: ASPirin 81 mg TAB PO SCH (08:58)
[2023-05-21] MEDS ORDERED: FUROSEMIDE 20 MG TAB PO SCH (10:00)
[2023-05-21] MEDS ORDERED: POTASSIUM CHL 20 Meq TABLET PO ONE (12:00)
[2023-05-21] MEDS: ATORVASTATIN 20 MG TAB PO SCH (21:25)
[2023-05-22] VITALS (9 sets, daily range): BP systolic 100–136; BP diastolic 51–78; PULSE 52–100; RESP 16–91; TEMP 97.4–98.7; O2SAT 95–98
[2023-05-22] MEDS: FUROSEMIDE 20 MG/2 ML VIAL IV SCH ×2 (05:31→17:54)
[2023-05-22] MEDS: ACCU-CHEK COMFORT CURVE STRIP VI SCH ×4 (05:31→21:07)
[2023-05-22] MEDS: InsuLIN REG 1unit/0.01ml Soln (100units/ml) SC SCH ×4 (05:31→21:26)
[2023-05-22 06:59] LABS: Chloride 104 mmol/L (98-107); Potassium 4.5 mmol/L (3.5-5.1); Sodium 137 mmol/L (136-145)
[2023-05-22 07:00] LABS: Anion Gap 6 (5-15); Carbon Dioxide 27 mmol/L (20-30)
[2023-05-22 07:01] LABS: Calcium 8.8 mg/dL (8.5-10.1)
[2023-05-22 07:05] LABS: BUN/Creatinine Ratio 6.7 (10.0-20.0); Blood Urea Nitrogen 9 mg/dL (9-23); Glucose 148 mg/dL (74-106)
[2023-05-22 07:12] LABS: Basophils # (auto) 0 10 ^3/uL (0-0.2); Basophils % (auto) 0.4 % (0.0-2.0); Eosinophils # (auto) 0.2 10 ^3/uL (0-0.8); Eosinophils % (auto) 2.4 % (0.0-7.0); Hematocrit 38.2 % (41.0-53.0); Hemoglobin 12.5 g/dL (13.5-17.5); Lymphocytes # (auto) 0.9 10 ^3/uL (0.4-5.4); Lymphocytes % (auto) 9.4 % (10.0-50.0); Mean Corpuscular Hemoglobin 29.2 pg (28.0-32.0); Mean Corpuscular Hgb Conc. 32.7 g/dL (32.0-36.0); Mean Corpuscular Volume 89.5 fL (80.0-100.0); Monocytes # (auto) 0.6 10 ^3/uL (0-1.3); Monocytes % (auto) 6.3 % (0.0-12.0); Neutrophils # (auto) 7.4 10 ^3/uL (1.6-8.6); Neutrophils % (auto) 81.5 % (37.0-80.0); Red Blood Cells 4.27 10^6/uL (4.5-5.90); Red Cell Distribution Width 15.4 % (11.8-14.3); White Blood Cell 9.1 10^3/uL (4.4-10.8)
[2023-05-22] MEDS: LISINOPRIL 5 MG TAB PO SCH (09:57)
[2023-05-22] MEDS: ASPirin 81 mg TAB PO SCH (09:58)
[2023-05-22] MEDS: METOPROLOL SUCCINATE XL 50 MG TAB PO SCH (09:58)
[2023-05-22] MEDS: ALLOPURINOL 100 MG TAB PO SCH (09:58)
[2023-05-22] MEDS: PANTOPRAZOLE 40 MG TAB PO SCH (09:58)
[2023-05-22] MEDS: ATORVASTATIN 20 MG TAB PO SCH (21:07)
[2023-05-23 05:00] VITALS: BP 116/57; PULSE 61; RESP 16; TEMP 98.3; O2SAT 95
[2023-05-23] MEDS: FUROSEMIDE 20 MG/2 ML VIAL IV SCH (05:25)
[2023-05-23] MEDS: ACCU-CHEK COMFORT CURVE STRIP VI SCH ×2 (05:34→11:45)
[2023-05-23] MEDS: InsuLIN REG 1unit/0.01ml Soln (100units/ml) SC SCH ×2 (05:34→11:45)
[2023-05-23 08:00] VITALS: PULSE 73; PULSE 76; RESP 18
[2023-05-23 08:30] VITALS: BP 134/73; PULSE 73; RESP 18; TEMP 97.4; O2SAT 95
[2023-05-23] MEDS: ALLOPURINOL 100 MG TAB PO SCH (09:40)
[2023-05-23] MEDS: PANTOPRAZOLE 40 MG TAB PO SCH (09:42)
[2023-05-23] MEDS: LISINOPRIL 5 MG TAB PO SCH (09:44)
[2023-05-23] MEDS ORDERED: METOPROLOL SUCCINATE XL 50 MG TAB PO SCH (10:00)
[2023-05-23] MEDS ORDERED: NIFEdipine ER 30 MG TAB PO SCH (10:00)
[2023-05-23 12:32] VITALS: BP 132/65; PULSE 70; RESP 18; TEMP 97.9; O2SAT 96
[2023-05-23 14:51] VITALS: BP 132/65; PULSE 70; RESP 18; TEMP 97.9; O2SAT 96
== END 2023-05-23 16:20 | disposition home or self-care (01) | DRG 291 ==
LOC: ER 13:17 → TELE 21:30 → TELE-WESTW 05-21 06:11
PROVIDERS: ADMIT Internal Medicine
DX: I13.0 Hypertensive heart and chronic kidney disease with heart failure and stage 1 through stage 4 chronic kidney disease, or unspecified chronic kidney disease (principal); I50.33 Acute on chronic diastolic (congestive) heart failure; J44.1 Chronic obstructive pulmonary disease with (acute) exacerbation; Z68.1 Body mass index [BMI] 19.9 or less, adult; R09.1 Pleurisy; F17.210 Nicotine dependence, cigarettes, uncomplicated; E11.21 Type 2 diabetes mellitus with diabetic nephropathy; E66.01 Morbid (severe) obesity due to excess calories; K21.9 Gastro-esophageal reflux disease without esophagitis; N18.31 Chronic kidney disease, stage 3a; R00.0 Tachycardia, unspecified; M10.9 Gout, unspecified; I48.91 Unspecified atrial fibrillation; I27.20 Pulmonary hypertension, unspecified; E78.5 Hyperlipidemia, unspecified; Z79.4 Long term (current) use of insulin; Z80.3 Family history of malignant neoplasm of breast; Z82.49 Family history of ischemic heart disease and other diseases of the circulatory system; Z83.3 Family history of diabetes mellitus; Z85.46 Personal history of malignant neoplasm of prostate
CPT/HCPCS: 36415; 71045; 71250; 80048; 80053; 82270; 82962; 83735; 83880; 84484; 85025; 85610; 85730; 93005; G0378; J1815